=== PATIENT | male | born 1940 | race Caucasian/White ===

== ENCOUNTER → 2016-04-19 | Outpatient (REF) | payer MEDICARE, OTHER ==
[~2016-04-19] MED LIST: AMIO20TA PO; ASPI1TAB PO; CALCTAB68 PO; CARA1TAB2 PO; CARV12.5 PO; CARV6.25 PO; CINN500C9 PO; CYAN1000VL IM; EYECAP PO; FERR325T PO; FLAX1000 PO; FURO40TA2 PO; INSUDET SC; JANU100T PO; METF1000 PO; PANT40TA2 PO; PARO10TA84 PO; POTA10CA PO; PRAV40TA2 PO; TAMS0.4C2 PO; TORS100T12 PO; VITA100066 PO
== END | disposition home or self-care (01) ==
LOC: M LAB REF 16:55
PROVIDERS: ATTEND Internal Medicine Nephrology
DX: D50.9 Iron deficiency anemia, unspecified (principal)

== ENCOUNTER → 2016-07-08 | Outpatient (REF) | payer MEDICARE, OTHER ==
[~2016-07-08] MED LIST changes: +TORS100T PO; -TORS100T12 PO
[2016-07-08 17:59] LABS: ALBUMIN 3.2 GM/DL (3.2-5.2); ALBUMIN/GLOBULIN RATIO 0.78 (1.00-1.93); BILIRUBIN,TOTAL 0.6 MG/DL (0.2-1.0); CALCIUM LEVEL 8.6 MG/DL (8.8-10.2); CREATININE FOR GFR 2.93 MG/DL (0.70-1.30); GLOMERULAR FILTRATION RATE 22.3 (>42); PERCENT SATURATION 37.5 % (19.7-37.4); POTASSIUM SERUM 4.2 MEQ/L (3.5-5.1); TOTAL PROTEIN 7.3 GM/DL (6.4-8.2)
[2016-07-08 18:35] LABS: MEAN CORPUSCULAR HGB CONC 32.2 g/dl (32.0-36.5); MEAN CORPUSCULAR VOLUME 99.4 fl (80.0-96.0); RED CELL DISTRIBUTION WIDTH 14.4 % (11.5-14.5); RETIC HEMOGLOBIN CONTENT CHr 33.5 PG (24-36); RETICULOCYTE % ADVIA2120 2.8 % (0.5-1.5); WHITE BLOOD COUNT 9.9 K/mm3 (4.0-10.0)
== END ==
LOC: M SFHCCAPE 09:29
PROVIDERS: ATTEND Family Medicine
DX: D51.8 Other vitamin B12 deficiency anemias (principal); E11.40 Type 2 diabetes mellitus with diabetic neuropathy, unspecified; M35.3 Polymyalgia rheumatica; D50.0 Iron deficiency anemia secondary to blood loss (chronic); E78.2 Mixed hyperlipidemia

== ENCOUNTER → 2016-10-19 | Outpatient (REF) | payer MEDICARE, OTHER ==
[~2016-10-19] MED LIST changes: -CARA1TAB2 PO; +CARA1TAB6 PO; +FERR1TAB8 PO; -FERR325T PO; -METF1000 PO; +METF10004 PO; +PARO10TA3 PO; -PARO10TA84 PO
[2016-10-19 19:38] LABS: MEAN CORPUSCULAR HGB CONC 32.9 g/dl (32.0-36.5); MEAN CORPUSCULAR VOLUME 97.2 fl (80.0-96.0); RED CELL DISTRIBUTION WIDTH 14.5 % (11.5-14.5); WHITE BLOOD COUNT 6.6 K/mm3 (4.0-10.0)
[2016-10-19 20:18] LABS: ALBUMIN 3.1 GM/DL (3.2-5.2); ALBUMIN/GLOBULIN RATIO 0.76 (1.00-1.93); BILIRUBIN,TOTAL 0.6 MG/DL (0.2-1.0); CALCIUM LEVEL 8.9 MG/DL (8.8-10.2); CREATININE FOR GFR 3.11 MG/DL (0.70-1.30); GLOMERULAR FILTRATION RATE 20.8 (>42); POTASSIUM SERUM 4.2 MEQ/L (3.5-5.1); TOTAL PROTEIN 7.2 GM/DL (6.4-8.2)
== END ==
LOC: M SFHCCAPE 08:08
PROVIDERS: ATTEND Family Medicine
DX: N18.4 Chronic kidney disease, stage 4 (severe) (principal); I50.20 Unspecified systolic (congestive) heart failure; E11.40 Type 2 diabetes mellitus with diabetic neuropathy, unspecified